=== PATIENT | male | born 1950 | race Caucasian/White ===

== ENCOUNTER 2017-08-13 05:36 | Day surgery (SDC) | payer OTHER ==
[2017-08-12 10:44] VITALS: BMI 24.7
[2017-08-13] VITALS (10 sets, daily range): BP systolic 94–140; BP diastolic 61–99; PULSE 56–74; RESP 10–20; Ht 162.6 cm; Wt 73.8 kg
[~2017-08-13] VITALS: Ht 162.6 cm; Wt 73.8 kg
[2017-08-13] MEDS ORDERED: SULF500T35 PO (06:22)
[2017-08-13] MEDS ORDERED: METF500T4 PO (06:22)
[2017-08-13] MEDS ORDERED: LISI10TA2 PO (06:22)
[2017-08-13] MEDS ORDERED: HYDR25TA6 PO (06:22)
[2017-08-13] MEDS ORDERED: HYDR200T39 PO (06:22)
[2017-08-13] MEDS ORDERED: SIMV20TA2 PO (06:22)
[2017-08-13] MEDS ORDERED: METH25VI29 IJ (06:22)
[2017-08-13] MEDS ORDERED: BUPIVACAINE 0.5% (SDV) 30 ML INJ ONE (06:58)
[2017-08-13] MEDS ORDERED: DEXAMETHASONE 4 MG/ML 1 ML INJ ONE (06:58)
[2017-08-13] MEDS ORDERED: POVIDONE IODINE 10% 28.4 GM OINT ONE (06:59)
[2017-08-13] MEDS ORDERED: FENTAnyl 50 MCG/ML VIAL ONE (07:25)
[2017-08-13] MEDS ORDERED: CEFAZOLIN 1 GM INJ ONE (07:25)
[2017-08-13] MEDS ORDERED: PROPOFOL 20 ML ONE (07:25)
[2017-08-13] MEDS ORDERED: MIDAZOLAM 1 MG/ML 2 ML INJ ONE (07:25)
[2017-08-13] MEDS ORDERED: METOCLOPRAMIDE 10 MG INJ ONE (07:25)
--- NOTE | 2017-08-13 07:26 | HPN ---
Date/Time of Note Date/Time of Note DATE: 08/13/17 TIME: 07:26 Interval H&P Admission Note Pt. seen H&P reviewed: No system changes LINDEN GALVIN DPM Aug 13, 2017 07:26
[2017-08-13] MEDS ORDERED: HYDROmorphONE (0.2 MG/ML) 10ML SYG IV PRN ×3 (08:00)
[2017-08-13] MEDS ORDERED: ONDANSETRON 4 MG INJ IV PRN (08:00)
--- NOTE | 2017-08-13 08:55 | SIPON ---
Date/Time of Note Date/Time of Note DATE: 08/13/17 TIME: 08:47 Operative Report Preoperative Diagnosis Hallux abductovalgus with bunion formation right foot Postoperative Diagnosis Same Operation/Procedure Performed osteotomy and bunionectomy with fixation first metatarsal right Ayo osteotomy with fixation proximal phalanx hallux right with application of epifix first metatarsal Surgeon see signature line anesthesiologist assistant certified None Anesthesia: general Estimated blood loss: minimal Transfusion Required none Specimen Bone Grafts/Implants A 2.5 x 18 mm screw first metatarsal and 8 x 8 staple proximal phalanx and epifix 2 x 4 first metatarsal Complications none LINDEN GALVIN DPM Aug 13, 2017 08:55
--- NOTE | 2017-08-13 08:55 | SIPON ---
Date/Time of Note Date/Time of Note DATE: 08/13/17 TIME: 08:47 Operative Report Preoperative Diagnosis Hallux abductovalgus with bunion formation right foot Postoperative Diagnosis Same Operation/Procedure Performed osteotomy and bunionectomy with fixation first metatarsal right Ayo osteotomy with fixation proximal phalanx hallux right with application of epifix first metatarsal Surgeon see signature line special event assistant None Anesthesia: general Estimated blood loss: minimal Transfusion Required none Specimen Bone Grafts/Implants A 2.5 x 18 mm screw first metatarsal and 8 x 8 staple proximal phalanx and epifix 2 x 4 first metatarsal Complications none LNIDEN GALVIN DPM Aug 13, 2017 08:55
--- NOTE | 2017-08-13 08:55 | SIPON ---
Date/Time of Note Date/Time of Note DATE: 08/13/17 TIME: 08:47 Operative Report Preoperative Diagnosis Hallux abductovalgus with bunion formation right foot Postoperative Diagnosis Same Operation/Procedure Performed osteotomy and bunionectomy with fixation first metatarsal right Ayo osteotomy with fixation proximal phalanx hallux right with application of epifix first metatarsal Surgeon see signature line assistant at surgery None Anesthesia: general Estimated blood loss: minimal Transfusion Required none Specimen Bone Grafts/Implants A 2.5 x 18 mm screw first metatarsal and 8 x 8 staple proximal phalanx and epifix 2 x 4 first metatarsal Complications none LINDEN GALVIN DPM Aug 13, 2017 08:55
--- NOTE | 2017-08-13 11:46 | PREOPHP ---
DATE OF ADMISSION: 08/13/2017 HISTORY OF PRESENT ILLNESS: The patient is being admitted to the hospital for elective foot surgery. Palliative treatment, unsuccessful. The patient has been explained surgery, complications, alternatives, and elected to have elective foot surgery. The patient is having pain in the bunion on the right foot. See any other pertinent history, and upper extremity physical exam by Dr. Nunez. ALLERGIES: TO PENICILLIN. MEDICATIONS: The patient is taking for her diabetes, cholesterol, high blood pressure. REVIEW OF SYSTEMS: Negative heart, lung, liver, kidney, thyroid. Diabetes, being treated. SOCIAL HISTORY: Negative for smoking and occasional alcohol. PODIATRIC EXAM: FOOT: DP, PT equal and regular. NEUROLOGICAL: Negative for pathology. DERMATOLOGICAL: Negative for pathology. MUSCULOSKELETAL: X-ray findings are hallux abductovalgus with bunion formation, right foot. FINAL DIAGNOSIS: Hallux abductovalgus with bunion formation, right foot. Dictated By: Carlos Sierra DPM /brad/blake /Document#: [id number]
--- NOTE | 2017-08-13 11:46 | PREOPHP ---
DATE OF ADMISSION: 08/13/2017 HISTORY OF PRESENT ILLNESS: The patient is being admitted to the hospital for elective foot surgery. Palliative treatment, unsuccessful. The patient has been explained surgery, complications, alternatives, and elected to have elective foot surgery. The patient is having pain in the bunion on the right foot. See any other pertinent history, and upper extremity physical exam by Dr. Nunez. ALLERGIES: TO PENICILLIN. MEDICATIONS: The patient is taking for her diabetes, cholesterol, high blood pressure. REVIEW OF SYSTEMS: Negative heart, lung, liver, kidney, thyroid. Diabetes, being treated. SOCIAL HISTORY: Negative for smoking and occasional alcohol. PODIATRIC EXAM: FOOT: DP, PT equal and regular. NEUROLOGICAL: Negative for pathology. DERMATOLOGICAL: Negative for pathology. MUSCULOSKELETAL: X-ray findings are hallux abductovalgus with bunion formation, right foot. FINAL DIAGNOSIS: Hallux abductovalgus with bunion formation, right foot. Dictated By: Carlos Sierra DPM /brad/blake /Document#: [id number]
--- NOTE | 2017-08-13 11:46 | PREOPHP ---
DATE OF ADMISSION: 08/13/2017 HISTORY OF PRESENT ILLNESS: The patient is being admitted to the hospital for elective foot surgery. Palliative treatment, unsuccessful. The patient has been explained surgery, complications, alternatives, and elected to have elective foot surgery. The patient is having pain in the bunion on the right foot. See any other pertinent history, and upper extremity physical exam by Dr. Nunez. ALLERGIES: TO PENICILLIN. MEDICATIONS: The patient is taking for her diabetes, cholesterol, high blood pressure. REVIEW OF SYSTEMS: Negative heart, lung, liver, kidney, thyroid. Diabetes, being treated. SOCIAL HISTORY: Negative for smoking and occasional alcohol. PODIATRIC EXAM: FOOT: DP, PT equal and regular. NEUROLOGICAL: Negative for pathology. DERMATOLOGICAL: Negative for pathology. MUSCULOSKELETAL: X-ray findings are hallux abductovalgus with bunion formation, right foot. FINAL DIAGNOSIS: Hallux abductovalgus with bunion formation, right foot. Dictated By: Carlos Sierra DPM /brad/blake /Document#: [id number]
--- NOTE | 2017-08-13 17:10 | OPR ---
DATE OF OPERATION: 08/13/2017 PREOPERATIVE DIAGNOSIS: Hallux abductovalgus, with bunion formation, right foot. POSTOPERATIVE DIAGNOSIS: Hallux abductovalgus, with bunion formation, right foot. OPERATION PERFORMED: 1. Osteotomy and bunionectomy, with fixation, 1st metatarsal right foot. 2. Ayo osteotomy, with fixation, proximal phalanx, hallux, right foot. SURGEON: Carlos Sierra DPM OPERATIVE PROCEDURE: Patient was brought to the surgical suite, placed in the supine position. Patient had IV sedation. Patient had sterile prep and drape, a pneumatic cuff at [facility] and findings consistent with the pre and postop diagnosis. The 1st incision was a dorsal longitudinal incision over the 1st metatarsophalangeal joint. Using sharp and blunt dissection, the incision was carried deep, and the head of the 1st metatarsal was freed of its attachment dorsally and medially. The medial eminence was resected. The area then had a horizontal V- osteotomy, the distal part centered in the head of the 1st metatarsal medially and then going proximally with the stems. The stems were 60 degrees to each other. The capital fragment was moved lateral, impacted upon the shaft, and then a K-wire was placed across the shaft and measured, and a 2.5, 18 mm screw was screwed into place to hold the osteotomy site in position. The K- wire was removed. The area was flush to the 1st metatarsal and was held solid and next was turned to the proximal phalanx, which the shaft of the proximal phalanx was freed of its attachment. An Ayo osteotomy, with the apex lateral and the base medial and at the widest point was 3 mm. Bone was removed, and then the distal half of the proximal phalanx was impacted upon the proximal part of the proximal phalanx, and the 8 x 8 staple by [employer] was use to hold that osteotomy in place. The preoperative condition had now been relieved. The area was cleansed and subcutaneously coaptated using 3-0 Vicryl, and the skin was coaptated using 5-0 nylon. The area was injected with 0.5 percent Marcaine to prolong the anesthesia, and the area was then dressed using half-inch Steri-Strips, Betadine ointment, 4x4s impregnated with Betadine solution and Max, with an outer layer of Coban made into a semicompressive dressing. The patient tolerated surgery well and was returned to recovery room in satisfactory condition. Dictated By: Carlos Sierra DPM /brad/kaleigh /Document#: [id number]
--- NOTE | 2017-08-13 17:10 | OPR ---
DATE OF OPERATION: 08/13/2017 PREOPERATIVE DIAGNOSIS: Hallux abductovalgus, with bunion formation, right foot. POSTOPERATIVE DIAGNOSIS: Hallux abductovalgus, with bunion formation, right foot. OPERATION PERFORMED: 1. Osteotomy and bunionectomy, with fixation, 1st metatarsal right foot. 2. Ayo osteotomy, with fixation, proximal phalanx, hallux, right foot. SURGEON: Carlos Sierra DPM OPERATIVE PROCEDURE: Patient was brought to the surgical suite, placed in the supine position. Patient had IV sedation. Patient had sterile prep and drape, a pneumatic cuff at [facility] and findings consistent with the pre and postop diagnosis. The 1st incision was a dorsal longitudinal incision over the 1st metatarsophalangeal joint. Using sharp and blunt dissection, the incision was carried deep, and the head of the 1st metatarsal was freed of its attachment dorsally and medially. The medial eminence was resected. The area then had a horizontal V- osteotomy, the distal part centered in the head of the 1st metatarsal medially and then going proximally with the stems. The stems were 60 degrees to each other. The capital fragment was moved lateral, impacted upon the shaft, and then a K-wire was placed across the shaft and measured, and a 2.5, 18 mm screw was screwed into place to hold the osteotomy site in position. The K- wire was removed. The area was flush to the 1st metatarsal and was held solid and next was turned to the proximal phalanx, which the shaft of the proximal phalanx was freed of its attachment. An Ayo osteotomy, with the apex lateral and the base medial and at the widest point was 3 mm. Bone was removed, and then the distal half of the proximal phalanx was impacted upon the proximal part of the proximal phalanx, and the 8 x 8 staple by [employer] was use to hold that osteotomy in place. The preoperative condition had now been relieved. The area was cleansed and subcutaneously coaptated using 3-0 Vicryl, and the skin was coaptated using 5-0 nylon. The area was injected with 0.5 percent Marcaine to prolong the anesthesia, and the area was then dressed using half-inch Steri-Strips, Betadine ointment, 4x4s impregnated with Betadine solution and Max, with an outer layer of Coban made into a semicompressive dressing. The patient tolerated surgery well and was returned to recovery room in satisfactory condition. Dictated By: Carlos Sierra DPM /brad/kaleigh /Document#: [id number]
--- NOTE | 2017-08-13 17:10 | OPR ---
DATE OF OPERATION: 08/13/2017 PREOPERATIVE DIAGNOSIS: Hallux abductovalgus, with bunion formation, right foot. POSTOPERATIVE DIAGNOSIS: Hallux abductovalgus, with bunion formation, right foot. OPERATION PERFORMED: 1. Osteotomy and bunionectomy, with fixation, 1st metatarsal right foot. 2. Ayo osteotomy, with fixation, proximal phalanx, hallux, right foot. SURGEON: Carlos Sierra DPM OPERATIVE PROCEDURE: Patient was brought to the surgical suite, placed in the supine position. Patient had IV sedation. Patient had sterile prep and drape, a pneumatic cuff at [facility] and findings consistent with the pre and postop diagnosis. The 1st incision was a dorsal longitudinal incision over the 1st metatarsophalangeal joint. Using sharp and blunt dissection, the incision was carried deep, and the head of the 1st metatarsal was freed of its attachment dorsally and medially. The medial eminence was resected. The area then had a horizontal V- osteotomy, the distal part centered in the head of the 1st metatarsal medially and then going proximally with the stems. The stems were 60 degrees to each other. The capital fragment was moved lateral, impacted upon the shaft, and then a K-wire was placed across the shaft and measured, and a 2.5, 18 mm screw was screwed into place to hold the osteotomy site in position. The K- wire was removed. The area was flush to the 1st metatarsal and was held solid and next was turned to the proximal phalanx, which the shaft of the proximal phalanx was freed of its attachment. An Ayo osteotomy, with the apex lateral and the base medial and at the widest point was 3 mm. Bone was removed, and then the distal half of the proximal phalanx was impacted upon the proximal part of the proximal phalanx, and the 8 x 8 staple by [employer] was use to hold that osteotomy in place. The preoperative condition had now been relieved. The area was cleansed and subcutaneously coaptated using 3-0 Vicryl, and the skin was coaptated using 5-0 nylon. The area was injected with 0.5 percent Marcaine to prolong the anesthesia, and the area was then dressed using half-inch Steri-Strips, Betadine ointment, 4x4s impregnated with Betadine solution and Max, with an outer layer of Coban made into a semicompressive dressing. The patient tolerated surgery well and was returned to recovery room in satisfactory condition. Dictated By: Carlos Sierra DPM /brad/kaleigh /Document#: [id number]
== END 2017-08-13 10:45 | disposition home or self-care (01) ==
LOC: SUR 05:36 → SDS 05:36 → SUR 10:45
PROVIDERS: ATTEND Podiatrist
DX: M20.11 Hallux valgus (acquired), right foot (principal); M21.611 Bunion of right foot; I10 Essential (primary) hypertension; E11.9 Type 2 diabetes mellitus without complications; M06.9 Rheumatoid arthritis, unspecified
CPT/HCPCS: 28299; 82962; 88304; J0690; J2250; J2765; J3010; J1100

== ENCOUNTER 2018-03-04 05:32 | Day surgery (SDC) | END 2018-03-04 10:24 | disposition home or self-care (01) ==